=== PATIENT | male | born 1965 | race Caucasian/White ===

== ENCOUNTER → 2021-01-13 03:46 | Outpatient (CLI) | payer BC, SELFPAY ==
[2021-01-13 18:05] LABS: SARS-CoV-2 RNA PCR Negative
== END ==
PROVIDERS: PCP Internal Medicine; Visit Provider Internal Medicine
DX: R68.89 Other general symptoms and signs (principal); Z20.822 Contact with and (suspected) exposure to COVID-19
CPT/HCPCS: C9803; U0003; U0005

== ENCOUNTER 2021-02-09 15:09 | Outpatient (CLI) | payer BC, SELFPAY ==
--- NOTE | ~2021-02-09 | XR_ITS ---
XR chest 2V DATE: 02/09/2021 15:25 INDICATION: Cough. TECHNIQUE: PA and lateral views COMPARISON: 11/30/2011 PA and lateral chest FINDINGS: Normal heart size. No hilar or mediastinal enlargement. No pulmonary infiltrate or consolidation, pleural effusion or pulmonary vascular congestion or pneumo thorax. Mild thoracic scoliosis. IMPRESSION: No active cardiopulmonary disease Reviewed, dictated and finalized at location A.
== END 2021-02-09 15:10 | disposition home or self-care (01) ==
LOC: ANHIMG 15:16
PROVIDERS: PCP Internal Medicine; Visit Provider Physician Assistant
DX: R05.9 Cough, unspecified (principal)
CPT/HCPCS: 71046

== ENCOUNTER 2022-02-16 16:46 | Outpatient (CLI) | payer BC, SELFPAY ==
--- NOTE | ~2022-02-16 | XR_ITS ---
EXAMINATION: XR abdomen/kub 1V INDICATION: Abnormal bowel sounds TECHNIQUE: Supine views of the abdomen were obtained on 2 radiographs. COMPARISON: 12/06/2003 FINDINGS: The bowel gas pattern is normal. No dilated loops of bowel or. There are phleboliths of the pelvis. There is mild osteoarthritis of the hips. The visualized lung bases are clear. Surgical clip s in the right upper quadrant are likely from prior cholecystectomy. IMPRESSION: 1. No radiographic correlate for the patient's symptoms. Reviewed, dictated and finalized at location B. 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
== END 2022-02-16 16:47 | disposition home or self-care (01) ==
LOC: ANHIMG 16:48
PROVIDERS: PCP Internal Medicine; Visit Provider Internal Medicine
DX: R10.819 Abdominal tenderness, unspecified site (principal); R10.9 Unspecified abdominal pain; R19.15 Other abnormal bowel sounds; R93.3 Abnormal findings on diagnostic imaging of other parts of digestive tract
CPT/HCPCS: 74018

== ENCOUNTER 2022-02-28 08:40 | Outpatient (CLI) | payer BC, SELFPAY ==
--- NOTE | ~2022-02-28 | XR_ITS ---
EXAMINATION: XR small bowel follow through DATE: 02/28/2022 09:48 INDICATION: Abnormal bowel sounds and periumbilical pain and tenderness. 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 Oral contrast was administered, and sequential radiographs of the abdomen were obtained until oral contrast was noted to be in the proxi mal colon. Spot fluoroscopic images of the small bowel were obtained. Fluoroscopy exposure time was 3 .9 minutes. COMPARISON: None. FINDINGS: Transit time from the stomach to proximal colon was approximately 15 minutes. There is normal caliber and mucosal fold pattern throughout the small bowel. Terminal ileum is normal. Contrast fills the ba se of the appendix. No tethering or abnormal mass effect observed upon the small bowel with real-time fluoroscopy. IMPRESSION: 1. Normal small bowel follow-through. Reviewed, dictated and finalized at location A. 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
== END 2022-02-28 08:41 | disposition home or self-care (01) ==
LOC: ANHIMG 08:42
PROVIDERS: PCP Internal Medicine; Visit Provider Nurse Practitioner
DX: R19.15 Other abnormal bowel sounds (principal); R93.3 Abnormal findings on diagnostic imaging of other parts of digestive tract; R10.9 Unspecified abdominal pain
CPT/HCPCS: 74250

== ENCOUNTER 2024-11-08 07:57 | Outpatient (CLI) | payer BC, SELFPAY ==
--- NOTE | ~2024-11-08 | US_ITS ---
Limited Abdominal Sonogram: Real-time sonographic imaging of the right upper quadrant was performed. Clinical History: Abnormal findings of blood chemistry Findings: The liver appears echogenic, with no evidence of mass lesion or bile duct dilatation. Main portal vein demonstrates normal direction of flow. The gallbladder is absent, compatible with prior cholecystectomy. The common bile duct measures 3 mm. The visualized pancreas, aorta, and IVC are unr emarkable. Impression: Diffuse fatty infiltration of the liver. Reviewed, dictated and finalized at location M. Impression: Diffuse fatty infiltration of the liver.
== END 2024-11-08 07:58 | disposition home or self-care (01) ==
LOC: MICIMG 07:57
PROVIDERS: PCP Internal Medicine; Visit Provider Internal Medicine
DX: R79.89 Other specified abnormal findings of blood chemistry (principal); K76.0 Fatty (change of) liver, not elsewhere classified
CPT/HCPCS: 76705